=== PATIENT | male | born 1985 | race American Indian/Alaskan Native ===

== ENCOUNTER 2019-12-16 01:32 | Inpatient (IN) | payer SELFPAY ==
--- NOTE | 2019-12-16 02:32 | Emergency Department Report ---
HPI - General Chief Complaint: Dizziness Time Seen by Provider: 12/16/19 02:06 - HPI HPI: 34-year-old male presents to the emergency department with a complaint of some lightheadedness/dizziness and saying that he just "does not feel right." However, the patient says that this has been going on over the past 5 years. When asked what brought him in this evening the patient just repeats that he "just does not feel right." He denies any headache, vision change, slurred speech, fever, chest pain, shortness of breath, numbness or paresthesias. The patient says that he feels confused and that he is forgetting things. He denies any past medical history. He is a tobacco smoker but denies any recent illicit drug use. He does not have a primary care physician. No recent travel or sick contacts at home. ED Past Medical Hx - Past Medical History Previous Medical History?: No - Surgical History Past Surgical History?: No - Social History Smoking Status: Never Smoker Substance Use Type: None ED Review of Systems ROS: Stated complaint: DOESNT FEEL RIGHT Other details as noted in HPI Comment: All other systems reviewed and negative Constitutional: denies: chills, fever Eyes: denies: eye pain, vision change ENT: denies: ear pain, throat pain Respiratory: denies: cough, shortness of breath Cardiovascular: denies: chest pain, palpitations Gastrointestinal: denies: abdominal pain, vomiting Genitourinary: denies: dysuria, discharge Musculoskeletal: denies: back pain, arthralgia Skin: denies: rash, lesions Neurological: confusion. denies: headache Physical Exam - Physical Exam Vital Signs: Vital Signs 12/16/19 12/16/19 01:53 02:10 Temperature 97.5 F L 98.0 F Pulse Rate 76 76 Respiratory 16 19 Rate Blood Pressure 115/78 Blood Pressure 108/57 [Left] O2 Sat by Pulse 98 95 Oximetry Physical Exam: GENERAL: The patient is well-developed well-nourished. HENT: Normocephalic. Atraumatic. Patient has moist mucous membranes. EYES: Extraocular motions are intact. Pupils equal reactive to light bilaterally. NECK: Supple. Trachea is midline. CHEST/LUNGS: Clear to auscultation. There is no respiratory distress noted. HEART/CARDIOVASCULAR: Regular. There is no tachycardia. There is no murmur. ABDOMEN: Abdomen is soft, nontender. Patient has normal bowel sounds. There is no abdominal distention. SKIN: Skin is warm and dry. NEURO: Patient is sleepy but is easily arousable. Once awake he is oriented, but is slow to respond. Occasionally he does appear slightly confused or has to have things repeated to him multiple times. The patient is cooperative. No facial asymmetry. No pronator drift or dysmetria. MUSCULOSKELETAL: There is no tenderness or deformity. There is no limitation range of motion. ED Course Vital Signs 12/16/19 12/16/19 01:53 02:10 Temperature 97.5 F L 98.0 F Pulse Rate 76 76 Respiratory 16 19 Rate Blood Pressure 115/78 Blood Pressure 108/57 [Left] O2 Sat by Pulse 98 95 Oximetry ED Medical Decision Making - Lab Data Result diagrams: 12/16/19 02:37 12/16/19 02:37 - EKG Data -: EKG Interpreted by Wy EKG shows normal: sinus rhythm, axis, intervals, QRS complexes, ST-T waves (bryan y repolarization) Rate: normal - EKG Data When compared to previous EKG there are: previous EKG unavailable Interpretation: normal EKG - Radiology Data Radiology results: report reviewed CT head/brain wo con INDICATION: Altered Mental Status Unknown if patient is E.T.O.H.. TECHNIQUE: All CT scans at this location are performed using the following dose modulation technique: Automated exposure control. CONTRAST: None. COMPARISON: None available. FINDINGS: The ventricular system is appropriate in size and configuration without midline shift. Negative for mass, stroke or hemorrhage. Evaluation sinuses demonstrate mild thickening greatest at the et hmoid air cells. IMPRESSION: Mild thickening greatest at the ethmoid air cells. - Medical Decision Making This patient presents to the emergency department with the generic complaint of "I do not feel right." The patient is rather sleepy but is easily arousable. Once awake he is oriented to person, place and time. However he is slow to respond, will go right back to sleep if not stimulated, and sometimes needs the question or request to be repeated multiple times. I do not see any motor, sensory or lateralizing deficits. Cranial nerves II through XII grossly intact. CT scan of the head without contrast did not show any bleed, shift, mass, ischemia, or any other acute process. Patient's labs are mostly unremarkable except for hyperammonemia with a level of 82. No elevated LFTs or bilirubin. Negative UDS and blood alcohol level. EKG does not show any signs of ST elevation ID or dysrhythmia. The patient was given a dose of lactulose for this hepatic encephalopathy and will be admitted to the hospital for further evaluation and treatment. He has been accepted for admission by the hospitalist, Dr. Reyes. Critical Care Time: No Critical care attestation.: If time is entered above; I have spent that time in minutes in the direct care of this critically ill patient, excluding procedure time. ED Disposition Clinical Impression: Hepatic encephalopathy, Hyperammonemia Disposition: 09 OP ADMIT IP TO THIS HOSP Is pt being admited?: Yes Condition: Fair Time of Disposition: 04:33
[2019-12-16 02:57] LABS: Basophils % (Auto) 0.4 % (0.0-1.8); Eosinophils # (Auto) 0.3 K/mm3 (0.0-0.4); Eosinophils % (Auto) 5.1 % (0.0-4.3); Hematocrit 40.6 % (35.5-45.6); Hemoglobin 13.7 gm/dl (11.8-15.2); Lymphocytes # (Auto) 2.4 K/mm3 (1.2-5.4); Lymphocytes % (Auto) 37.2 % (13.4-35.0); Mean Corpuscular HGB Conc 34 % (32-34); Mean Corpuscular Volume 90 fl (84-94); Monocytes # (Auto) 0.4 K/mm3 (0.0-0.8); Monocytes % (Auto) 6.5 % (0.0-7.3); Platelet Count 209 K/mm3 (140-440); Red Blood Count 4.54 M/mm3 (3.65-5.03); Red Cell Distribution Width 14.9 % (13.2-15.2)
[2019-12-16 03:10] LABS: Amphetamine Screen,Urine PRESUMPTIVE NEGATIVE; Benzodiazepines Screen,Urine PRESUMPTIVE NEGATIVE; Cannabinoid Screen,Urine PRESUMPTIVE NEGATIVE; Cocaine Screen,Urine PRESUMPTIVE NEGATIVE; Methadone Screen,Urine PRESUMPTIVE NEGATIVE; Opiate Screen,Urine PRESUMPTIVE NEGATIVE
[2019-12-16 03:12] LABS: Bilirubin,Urine SM (Negative); Blood,Urine NEG (Negative); Color,Urine Amber (Yellow); Mucus,Urine 3+ /HPF
[2019-12-16 03:21] LABS: Ictotest,Urine Negative (Negative)
[2019-12-16 03:24] LABS: Alanine Aminotransferase 17 units/L (7-56); Albumin 3.7 g/dL (3.9-5); BUN/Creatinine Ratio 13; Blood Urea Nitrogen 9 mg/dL (9-20); Calcium 9.3 mg/dL (8.4-10.2); Hemolysis Index 5
[2019-12-16] MEDS ORDERED: LACTULOSE 20 GM/30 ML ORAL LIQD PO ONE (03:30)
--- NOTE | 2019-12-16 04:27 | Cat Scan Report ---
CT head/brain wo con INDICATION: Altered Mental Status Unknown if patient is E.T.O.H.. TECHNIQUE: All CT scans at this location are performed using the following dose modulation technique: Automated exposure control. CONTRAST: None. COMPARISON: None available. FINDINGS: The ventricular system is appropriate in size and configuration without midline shift. Nega tive for mass, stroke or hemorrhage. Evaluation sinuses demonstrate mild thickening greatest at the ethmoid air cells. IMPRESSION: Mild thickening greatest at the ethmoid air cells. Signer Name: Dov Lee MD Signed: 12/16/2019 4:23 AM Workstation Name: [email or web address]
[2019-12-16] MEDS ORDERED: ONDANSETRON 4 MG/2 ML INJ IV PRN (05:43)
[2019-12-16] MEDS ORDERED: ACETAMINOPHEN 325 MG TAB PO PRN (05:43)
--- NOTE | 2019-12-16 06:05 | History and Physical Report ---
History of Present Illness History of present illness: 34-year-old male was brought to the emergency room for confusion. Very difficult to obtain a history from the patient, he only mumbles his name over and over. Labs show elevated ammonia level, patient will be admitted for hepatic encephalopathy PAST MEDICAL HISTORY: Unknown PAST SURGICAL HISTORY: Unknown SOCIAL HISTORY: Unknown FAMILY HISTORY: Unknown Medications and Allergies Allergies Allergy/AdvReac Type Severity Reaction Status Date / Time No Known Allergies Allergy Verified 12/16/19 01:51 Home Medications Medication Instructions Recorded Confirmed Last Taken Type Lactulose [Cephulac] 20 gm PO BID #1 bottle 12/17/19 Unknown Rx Active Meds: Active Medications Acetaminophen (Tylenol) 650 mg PO Q4H PRN PRN Reason: Pain MILD(1-3)/Fever >100.5/SANDOVAL Ondansetron HCl (Zofran) 4 mg IV Q8H PRN PRN Reason: Nausea And Vomiting Sodium Chloride (Sodium Chloride Flush Syringe 10 Ml) 10 ml IV BID CARLO Sodium Chloride (Sodium Chloride Flush Syringe 10 Ml) 10 ml IV PRN PRN PRN Reason: LINE FLUSH Exam - Physical Exam Narrative exam: Gen. appearance: Patient lying in bed, no apparent distress HEENT: Normocephalic, atraumatic, pupils equally round and reactive to light, extraocular movement intact, and no sclericterus,. No JVD or thyromegaly or nodule,neck supple, no carotid bruit ,mucous membranes moist, no exudate or erythema Heart: S1, S2, regular rate and rhythm Lungs: Crackles bilaterally, breathing comfortable Abdomen: Positive bowel sounds, nontender, nondistended, no organomegaly Extremity: no edema, cyanosis, clubbing Skin: No rash, nodules, warm, dry Neuro: speech is fluent, moves extremities, sensory intact - Constitutional Vitals: Temp Pulse Resp BP Pulse Ox 98.0 F 53 L 13 104/54 96 12/16/19 02:10 12/16/19 05:30 12/16/19 05:30 12/16/19 05:30 12/16/19 05:30 Results - Labs CBC & Chem 7: 12/17/19 04:26 12/17/19 04:26 Labs: Abnormal lab results 12/16/19 12/16/19 12/16/19 Range/Units 02:37 02:37 02:37 Lymph % (Auto) 37.2 H (13.4-35.0) % Eos % (Auto) 5.1 H (0.0-4.3) % Creatinine 0.7 L (0.8-1.5) mg/dL Glucose 121 H (75-100) mg/dL Ammonia 82.0 H (25-60) umol/L Total Protein 6.1 L (6.3-8.2) g/dL Albumin 3.7 L (3.9-5) g/dL Ur Specific [place] (1.003-1.030) 12/16/19 Range/Units 02:40 Lymph % (Auto) (13.4-35.0) % Eos % (Auto) (0.0-4.3) % Creatinine (0.8-1.5) mg/dL Glucose (75-100) mg/dL Ammonia (25-60) umol/L Total Protein (6.3-8.2) g/dL Albumin (3.9-5) g/dL Ur Specific [place] 1.036 H (1.003-1.030) - Imaging and Cardiology CT Scan - head: report reviewed Assessment and Plan Assessment Hepatic encephalopathy Start lactulose, IV fluids Monitor ammonia level DVT prophylax
[2019-12-16] MEDS ORDERED: SODIUM CHLORIDE 0.9% 1000 ML 1,000 ML IV SCH (06:15)
[2019-12-16] MEDS: LACTULOSE 20 GM/30 ML ORAL LIQD PO SCH ×4 (07:30→23:59)
--- NOTE | 2019-12-16 10:16 | Event Note ---
Date: 12/16/19 Patient is 34 yo with altered mental status, elevated Ammonia. I have seen and examined him.
--- NOTE | 2019-12-16 11:56 | Ultrasound Report ---
ABDOMINAL ULTRASOUND LIMITED (RIGHT UPPER QUADRANT) HISTORY: Altered mental status and elevated ammonia levels. COMPARISON: None. TECHNIQUE: Multiple real-time ultrasonographic grayscale images were obtained of the right upper abdo men. FINDINGS: Pancreas: Obscured by poor acoustic windows. Liver: Normal size with the right lobe measuring 15 cm in length. However, mild diffuse increased ech ogenicity with a heterogeneous nodular echo pattern. Gallbladder: No stones, wall thickening or pericholecystic fluid. Common bile duct: 3.0 mm. Right kidney: No significant abnormality. No hydronephrosis. Kidney measures 9.8 cm. Additional findings: None. IMPRESSION: 1. Changes in the liver suggest possible hepatic cirrhosis. 2. No cholelithiasis and no biliary obstruction. Signer Name: Octavio Soni MD Signed: 12/16/2019 11:52 AM Workstation Name: [id number]
[2019-12-16 14:24] LABS: INR 1.01 (0.87-1.13)
[2019-12-16 14:46] LABS: Hepatitis C Virus Antibody Non-Reactive (NonReactive)
[2019-12-16 15:12] LABS: Hepatitis B Surface Antigen Non-Reactive (Negative)
--- NOTE | 2019-12-16 16:52 | Gastroenterology Consultation ---
History of Present Illness - Reason for Consult Consult date: 12/16/19 cirrhosis/ams Requesting physician: RAHEL GERARD - History of Present Illness The patient is a 34 yo male who presents with ams. pt able to provide some history on exam but easily distracted and difficulty gathering thoughts. reportedly presented with confusion/ams. he is oriented x 3 on exam, reports occasionally drinking bottle of wine but does not elaborate further. states he has not been feeling well since trying cocaine 10 years ago. he is not aware of h/o liver disease. US showed possible signs of cirrhosis, and ammonia is elevated for which gi has been consulted Past History Past Medical History: No medical history Past Surgical History: No surgical history Social history: no significant social history Medications and Allergies Allergies Allergy/AdvReac Type Severity Reaction Status Date / Time No Known Allergies Allergy Verified 12/16/19 01:51 Home Medications Medication Instructions Recorded Confirmed Last Taken Type No Known Home Medications [No 12/16/19 12/16/19 Unknown History Reported Home Medications] Active Meds: Active Medications Acetaminophen (Tylenol) 650 mg PO Q4H PRN PRN Reason: Pain MILD(1-3)/Fever >100.5/SANDOVAL Sodium Chloride (Nacl 0.9% 1000 Ml) 1,000 mls @ 125 mls/hr IV DIRECT [facility] Last Admin: 12/16/19 07:47 Dose: 125 mls/hr Documented by: Lactulose (Cephulac) 20 gm PO Q6HR [facility] Last Admin: 12/16/19 13:20 Dose: 20 gm Documented by: Ondansetron HCl (Zofran) 4 mg IV Q8H PRN PRN Reason: Nausea And Vomiting Sodium Chloride (Sodium Chloride Flush Syringe 10 Ml) 10 ml IV BID [facility] Last Admin: 12/16/19 13:21 Dose: 10 ml Documented by: Sodium Chloride (Sodium Chloride Flush Syringe 10 Ml) 10 ml IV PRN PRN PRN Reason: LINE FLUSH reviewed/updated patient's home and current medications Review of Systems - Review of Systems ROS unobtainable: due to mental status Exam - Constitutional Vital Signs: Temp Pulse Resp BP Pulse Ox 98.6 F 74 18 129/67 97 12/16/19 12:31 12/16/19 16:22 12/16/19 12:31 12/16/19 12:31 12/16/19 12:31 General appearance: no acute distress - EENT Eyes: PERRL, EOM intact - Neck Neck: supple - Respiratory Respiratory effort: normal Respiratory: bilateral: CTA - Cardiovascular Rhythm: regular Heart Sounds: Present: S1 & S2 Extremities: No edema - Gastrointestinal General gastrointestinal: Present: soft, non-tender, non-distended - Integumentary Integumentary: Present: clear, warm - Neurologic Neurological: alert and oriented x3, other (neg asterixis) - Labs CBC & Chem 7: 12/16/19 02:37 12/16/19 02:37 Lab Results: Laboratory Results - last 24 hr 12/16/19 12/16/19 12/16/19 02:37 02:37 02:37 WBC 6.6 RBC 4.54 Hgb 13.7 Hct 40.6 MCV 90 MCH 30 MCHC 34 RDW 14.9 Plt Count 209 Lymph % (Auto) 37.2 H [place] % (Auto) 6.5 Eos % (Auto) 5.1 H Baso % (Auto) 0.4 Lymph # 2.4 [place] # 0.4 Eos # 0.3 Baso # 0.0 Seg Neutrophils % 50.8 Seg Neutrophils # 3.3 PT INR Sodium 143 Potassium 3.9 Chloride 105.5 Carbon Dioxide 27 Anion Gap 14 BUN 9 Creatinine 0.7 L Estimated GFR > 60 BUN/Creatinine Ratio 13 Glucose 121 H Calcium 9.3 Total Bilirubin 0.20 AST 14 ALT 17 Alkaline Phosphatase 94 Ammonia 82.0 H Troponin T < 0.010 Total Protein 6.1 L Albumin 3.7 L Albumin/Globulin Ratio 1.5 TSH Urine Color Urine Turbidity Urine pH Ur Specific [place] Urine Protein Urine Glucose (UA) Urine Ketones Urine Blood Urine Nitrite Urine Bilirubin Urine Ictotest Urine Urobilinogen Ur Leukocyte Esterase Urine WBC (Auto) Urine RBC (Auto) Urine Mucus Urine Opiates Screen Urine Methadone Screen Ur Barbiturates Screen Ur Phencyclidine Scrn Ur Amphetamines Screen U Benzodiazepines Scrn Urine Cocaine Screen U Marijuana (THC) Screen Drugs of Abuse Note Plasma/Serum Alcohol Hepatitis A IgM Ab Hep Bs Antigen Hep B Core IgM Ab Hepatitis C Antibody 12/16/19 12/16/19 12/16/19 02:37 02:37 02:39 WBC RBC Hgb Hct MCV MCH MCHC RDW Plt Count Lymph % (Auto) [place] % (Auto) Eos % (Auto) Baso % (Auto) Lymph # [place] # Eos # Baso # Seg Neutrophils % Seg Neutrophils # PT INR Sodium Potassium Chloride Carbon Dioxide Anion Gap BUN Creatinine Estimated GFR BUN/Creatinine Ratio Glucose Calcium Total Bilirubin AST ALT Alkaline Phosphatase Ammonia Troponin T Total Protein Albumin Albumin/Globulin Ratio TSH 1.590 Urine Color Urine Turbidity Urine pH Ur Specific [place] Urine Protein Urine Glucose (UA) Urine Ketones Urine Blood Urine Nitrite Urine Bilirubin Urine Ictotest Urine Urobilinogen Ur Leukocyte Esterase Urine WBC (Auto) Urine RBC (Auto) Urine Mucus Urine Opiates Screen Presumptive negative Urine Methadone Screen Presumptive negative Ur Barbiturates Screen Presumptive negative Ur Phencyclidine Scrn Presumptive negative Ur Amphetamines Screen Presumptive negative U Benzodiazepines Scrn Presumptive negative Urine Cocaine Screen Presumptive negative U Marijuana (THC) Screen Presumptive negative Drugs of Abuse Note Disclamer Plasma/Serum Alcohol < 0.01 Hepatitis A IgM Ab Hep Bs Antigen Hep B Core IgM Ab Hepatitis C Antibody 12/16/19 12/16/19 12/16/19 02:40 13:48 13:48 WBC RBC Hgb Hct MCV MCH MCHC RDW Plt Count Lymph % (Auto) [place] % (Auto) Eos % (Auto) Baso % (Auto) Lymph # [place] # Eos # Baso # Seg Neutrophils % Seg Neutrophils # PT 13.4 INR 1.01 Sodium Potassium Chloride Carbon Dioxide Anion Gap BUN Creatinine Estimated GFR BUN/Creatinine Ratio Glucose Calcium Total Bilirubin AST ALT Alkaline Phosphatase Ammonia Troponin T Total Protein Albumin Albumin/Globulin Ratio TSH Urine Color [place] Urine Turbidity Clear Urine pH 5.0 Ur Specific [place] 1.036 H Urine Protein 30 mg/dl Urine Glucose (UA) Neg Urine Ketones Tr Urine Blood Neg Urine Nitrite Neg Urine Bilirubin Sm Urine Ictotest Negative Urine Urobilinogen 4.0 Ur Leukocyte Esterase Neg Urine WBC (Auto) 2.0 Urine RBC (Auto) 5.0 Urine Mucus 3+ Urine Opiates Screen Urine Methadone Screen Ur Barbiturates Screen Ur Phencyclidine Scrn Ur Amphetamines Screen U Benzodiazepines Scrn Urine Cocaine Screen U Marijuana (THC) Screen Drugs of Abuse Note Plasma/Serum Alcohol Hepatitis A IgM Ab Non-reactive Hep Bs Antigen Non-reactive Hep B Core IgM Ab Non-reactive Hepatitis C Antibody Non-reactive Assessment and Plan 1. Altered mental status 2. ?cirrhosis - per US read however labs do not suggest this. ct scan for better characterization of liver. will check viral serologies, ceruloplasmin (given age, ams), iron studies to start work-up. cont lactulose for now
[2019-12-16 18:04] LABS: Iron 55 ug/dL (49-181); Total Iron Binding Capacity 309 mcg/dL (250-450)
--- NOTE | 2019-12-16 21:21 | Cat Scan Report ---
CT ABDOMEN AND PELVIS WITH IV CONTRAST INDICATION: Liver disease with cirrhosis. COMPARISON: None available. TECHNIQUE: Axial CT images were obtained through the abdomen and pelvis after 100 mL IV contrast. All CT scans a t this location are performed using CT dose reduction for ALARA by means of automated exposure contro l. FINDINGS -- ABDOMEN: Lung Bases: No acute abnormality. Liver: The liver is grossly normal in size. The caudate lobe is slightly prominent.. Gallbladder: Normal. Bile Ducts: Normal. Pancreas: Normal. Spleen: Normal. Adrenals: Normal. Right Kidney and Proximal Ureter: Normal. Left Kidney and Proximal Ureter: Normal. Stomach and Bowel: Normal. Lymph Nodes: No significant adenopathy. Aorta: No significant abnormality. IVC: Normal. Additional Findings: None. FINDINGS -- PELVIS: Urinary Bladder and Distal Ureters: Normal. Reproductive Organs: No acute abnormality. Appendix: Normal. Bowel: No acute abnormality. Free Fluid: None. Lymph Nodes: No significant adenopathy. Additional Findings: None. Skeletal System: No acute abnormality. IMPRESSION: Slightly prominent caudate lobe which could be seen with early cirrhosis. No evidence of splenomegaly or ascites to definitely suggest portal venous hypertension at this time. The main portal vein measu res approximately 11 mm in greatest diameter. No focal hepatic lesion is identified. Signer Name: Catrachito Mackey MD Signed: 12/16/2019 9:16 PM Workstation Name: [id number]
[2019-12-17] MEDS ORDERED: METOCLOPRAMIDE 10 MG/2 ML INJ IV PRN (04:55)
[2019-12-17] MEDS: LACTULOSE 20 GM/30 ML ORAL LIQD PO SCH ×2 (05:03→13:15)
[2019-12-17 05:10] LABS: Basophils % (Auto) 0.3 % (0.0-1.8); Eosinophils # (Auto) 0.2 K/mm3 (0.0-0.4); Eosinophils % (Auto) 2.7 % (0.0-4.3); Hematocrit 40.6 % (35.5-45.6); Hemoglobin 13.5 gm/dl (11.8-15.2); Lymphocytes # (Auto) 1.9 K/mm3 (1.2-5.4); Lymphocytes % (Auto) 23.3 % (13.4-35.0); Mean Corpuscular HGB Conc 33 % (32-34); Mean Corpuscular Volume 89 fl (84-94); Monocytes # (Auto) 0.4 K/mm3 (0.0-0.8); Platelet Count 219 K/mm3 (140-440); Red Blood Count 4.56 M/mm3 (3.65-5.03); Red Cell Distribution Width 14.8 % (13.2-15.2)
[2019-12-17 05:25] LABS: BUN/Creatinine Ratio 10; Blood Urea Nitrogen 7 mg/dL (9-20); Calcium 8.8 mg/dL (8.4-10.2); Hemolysis Index 36
--- NOTE | 2019-12-17 09:53 | Discharge Summary ---
Providers - Providers Date of Admission: 12/16/19 05:43 Date of discharge: 12/17/19 Attending physician: RAHEL GERARD 12/16/19 12:09 Consult to Physician [CONS] Routine Comment: Consulting Provider: MERYL PATEL Physician Instructions: Reason For Exam: Liver cirrhosis, elevated ammonia, new Primary care physician: [employer] Hospitalization Condition: Fair Disposition: DC-01 TO HOME OR SELFCARE Core Measure Documentation - Palliative Care Palliative Care/ Comfort Measures: Not Applicable - Core Measures Any of the following diagnoses?: none Exam - Constitutional Vitals: Temp Pulse Resp BP Pulse Ox 98.1 F 46 L 20 119/59 96 12/17/19 08:13 12/17/19 08:13 12/17/19 08:13 12/17/19 08:13 12/17/19 08:13 Plan Activity: no restrictions Diet: regular Additional Instructions: 1.Follow up with PCP in 1 week. 2.Follow up with Dr. Erasto Styles, GI in 2 weeks Follow up with: PRIMARY CARE, [Primary Care Provider] - 7 Days Prescriptions: Lactulose [Cephulac] 20 gm PO BID #1 bottle
[2019-12-17 14:01] VITALS: BP 124/72
== END 2019-12-17 15:00 | disposition home or self-care (01) | DRG 442 ==
LOC: ED 01:32 → SUATTDRO 01:32 → 4A 05:43
PROVIDERS: ADMIT Internal Medicine; ATTEND Internal Medicine
DX: K72.90 Hepatic failure, unspecified without coma (principal); E72.20 Disorder of urea cycle metabolism, unspecified
CPT/HCPCS: 36415; 70450; 74177; 76705; 80048; 80053; 80074; 80307; 80320; 81001; 82140; 82390; 83550; 84443; 84484; 85025; 85610; 86706; 86803; 93005; G0378; G0480; J2405; J2765; J7030; Q9967